=== PATIENT | female | born 1995 | race Caucasian/White ===

== ENCOUNTER 2018-09-11 14:08 | Emergency (ER) | payer OTHER ==
[~2018-09-11] VITALS: Wt 90.0 kg
[~2018-09-11 14:08] MED LIST: FERR-31 PO; FERR-55 PO; PREN-39 PO; PRENAT PO
[2018-09-11 14:11] VITALS: BP 141/80; PULSE 99; RESP 18
[2018-09-11] MEDS ORDERED: ONDANSETRON (ODT) 4 MG TAB ODT STA (14:50)
[2018-09-11] MEDS ORDERED: MECLIZINE 12.5 MG TAB PO ONE (15:00)
[2018-09-11] MEDS ORDERED: IBUPROFEN 600 MG TAB PO ONE (15:00)
[2018-09-11] MEDS ORDERED: CEPHALEXIN 500 MG CAP PO ONE (15:30)
[2018-09-11] MEDS ORDERED: CEPH-443 PO (16:17)
[2018-09-11] MEDS ORDERED: IBUP-1542 PO (16:17)
[2018-09-11] MEDS ORDERED: MECL-77 PO (16:17)
--- NOTE | 2018-09-11 16:24 | ERD ---
ER Documentation Chief Complaint Chief Complaint mckeon,dizziness HPI 22-year-old female presents with multiple complaints. She awoke with a occipital and bitemporal headache. She also has some spinning type dizziness as well. She had nausea and vomiting nonbilious nonbloody. She denies abdominal pain, diarrhea, weakness or deficits. She denies any history of injury or inciting events. She denies urinary complaints. She denies chest pain or shortness of breath. ROS All systems reviewed and are negative except as per history of present illness. Medications Home Meds Active Scripts Ibuprofen* (Motrin*) 600 Mg Tab, 600 MG PO Q6, #15 TAB Prov:RAYMON SHEETS MD 09/11/18 Meclizine Hcl* (Meclizine Hcl*) 25 Mg Tablet, 25 MG PO Q8H PRN for DIZZINESS, #15 TAB Prov:RAYMON SHEETS MD 09/11/18 Cephalexin* (Keflex*) 500 Mg Capsule, 500 MG PO QID for 5 Days, CAP Prov:RAYMON SHEETS MD 09/11/18 Reported Medications Ferrous Sulfate* (Ferrous Sulfate*) 325 Mg Tablet, 325 MG PO BID, TAB /01/14 Multivit/Min/Fol Ac/Iron/Pren* ( S*) 1 Tab Tab, 1 TAB PO DAILY, TAB 04/07/14 Ferrous Sulfate (Iron Supplement) 1 Tab Tablet, 1 TAB PO DAILY 01/15/14 Vits W-Ca,Fe,Fa(<1MG) ( Vitamins) 1 Tab Tablet, 1 TAB PO DAILY 01/15/14 Allergies Allergies: Coded Allergies: No Known Drug Allergy (Verified Allergy, Unknown, 09/11/18) PMhx/Soc Medical and Surgical Hx: pt denies Medical Hx History of Surgery: Yes (APPENDECTOMY) Hx Alcohol Use: No Hx Substance Use: No Hx Tobacco Use: No Smoking Status: Never smoker FmHx Family History: No diabetes, No coronary disease, No other Physical Exam Vitals Vital Signs Date Temp Pulse Resp B/P (MAP) Pulse Ox O2 O2 Flow FiO2 Time Delivery Rate 09/11/18 98.1 99 18 141/80 99 14:11 (100) Physical Exam Const: No acute distress Head: Atraumatic Eyes: Normal Conjunctiva ENT: Normal External Ears, Nose and Mouth. Neck: Full range of motion. No meningismus. Resp: Clear to auscultation bilaterally Cardio: Regular rate and rhythm, no murmurs Abd: Soft, non tender, non distended. Normal bowel sounds Skin: No petechiae or rashes Back: No midline or flank tenderness Ext: No cyanosis, or edema Neur: Awake and alert no marcos reproducible vertigo except for mildly with arising from examination. Normal gait. negative Romberg and no pronator drift. Psych: Normal Mood and Affect Result Diagram: 09/11/18 1526 09/11/18 1526 Results 24 hrs Laboratory Tests Test 09/11/18 15:22 09/11/18 15:24 09/11/18 15:26 Bedside Urine pH (LAB) 5.5 Bedside Urine Protein (LAB) Trace Bedside Urine Glucose (UA) Negative Bedside Urine Ketones (LAB) Negative Bedside Urine Blood Trace-intact Bedside Urine Nitrite (LAB) Negative Bedside Urine Leukocyte Esterase (L 1+ POC Beta HCG, Qualitative NEGATIVE White Blood Count 8.1 10^3/ul Red Blood Count 4.48 10^6/ul Hemoglobin 12.1 g/dl Hematocrit 36.4 % Mean Corpuscular Volume 81.3 fl Mean Corpuscular Hemoglobin 27.0 pg Mean Corpuscular Hemoglobin Concent 33.2 g/dl Red Cell Distribution Width 13.8 % Platelet Count 373 10^3/UL Mean Platelet Volume 9.7 fl Immature Granulocytes % 0.500 % Neutrophils % 68.9 % Lymphocytes % 21.4 % Monocytes % 8.2 % Eosinophils % 0.5 % Basophils % 0.5 % Nucleated Red Blood Cells % 0.0 /100WBC Immature Granulocytes # 0.040 10^3/ul Neutrophils # 5.6 10^3/ul Lymphocytes # 1.7 10^3/ul Monocytes # 0.7 10^3/ul Eosinophils # 0.0 10^3/ul Basophils # 0.0 10^3/ul Nucleated Red Blood Cells # 0.0 10^3/ul Sodium Level 139 mmol/L Potassium Level 4.0 mmol/L Chloride Level 107 mmol/L Carbon Dioxide Level 23 mmol/L Anion Gap 9 Blood Urea Nitrogen 9 mg/dl Creatinine 0.52 mg/dl Est Glomerular Filtrat Rate mL/min > 60 mL/min Glucose Level 103 mg/dl Calcium Level 9.5 mg/dl Total Bilirubin 0.2 mg/dl Direct Bilirubin 0.00 mg/dl Indirect Bilirubin 0.2 mg/dl Aspartate Amino Transf (AST/SGOT) 41 IU/L Alanine Aminotransferase (ALT/SGPT) 47 IU/L Alkaline Phosphatase 71 IU/L Total Protein 7.9 g/dl Albumin 4.4 g/dl Globulin 3.50 g/dl Albumin/Globulin Ratio 1.25 Current Medications Medications Dose Sig/Jeffrey Start Time Status Last (Trade) Ordered Route PRN Stop Time Admin Dose Reason Admin Ondansetron 8 mg ONCE STAT 09/11/18 DC 09/11/18 HCl (Zofran ODT 14:50 09/11/18 15:31 Odt) 14:53 Ibuprofen 600 mg ONCE ONCE 09/11/18 DC 09/11/18 (Motrin) PO 15:00 09/11/18 15:31 15:01 Meclizine 25 mg ONCE ONCE 09/11/18 DC 09/11/18 HCl PO 15:00 09/11/18 15:30 (Antivert) 15:01 Cephalexin 500 mg ONCE ONCE 09/11/18 DC 09/11/18 (Keflex) PO 15:30 09/11/18 15:34 15:31 Procedures/MDM Patient presents with headache and dizziness of uncertain etiology. The dizzi ness is described as a vertigo type dizziness. She has no evidence of central nervous system lesion. CT brain was read as normal. Urine shows 1+ leukocyte esterase. CBC and CMP normal. She was given Zofran, Antivert and ibuprofen. Patient has no signs or symptoms of mass-effect, neurologic deficit, signs of significant bacterial infection. We will treat empirically for findings of UTI although uncertain of cause of symptoms. She may have early viral illness. She will treated with Antivert, Keflex, ibuprofen, primary care follow-up and return precautions. The patient was stable with no new complaints during the ER course. Clinically, there is no current evidence to suggest meningitis, sepsis, acute abdomen, pneumonia, stroke, acute coronary syndrome, pulmonary embolism, aortic dissection or any other emergent condition appearing to require further evaluation or hospitalization. Patient counseled regarding my diagnostic impression and care plan. Prior to discharge all questions answered. Pt agrees with treatment plan and understands strict return precautions. Pt is instructed to follow up with primary care provider within 24-48 hours. Precautionary instructions provided including instructions to return to the ER if not improving or for any worsening or changing symptoms or concerns. Departure Diagnosis: Primary Impression: UTI (urinary tract infection) Urinary tract infection type: acute cystitis Hematuria presence: without hematuria Qualified Codes: N30.00 - Acute cystitis without hematuria Additional Impressions: Dizziness Headache Headache type: unspecified Headache chronicity pattern: unspecified pattern Intractability: not intractable Qualified Codes: R51 - Headache Condition: Stable Patient Instructions: Understanding Urinary Tract Infections (UTIs), Dizziness, Unk Cause Additional Instructions: CT normal. Only abnormality on today's findings show infection in urine. May be vertigo as well. Drink plenty of fluids and rest at home. Recheck for new or worsening symptoms with primary care doctor. RAYMON SHEETS MD Sep 11, 2018 16:24
[2018-09-12] MEDS ORDERED: ACET325T33 PO (11:33)
[2018-09-12] MEDS ORDERED: RANI150T35 PO (11:33)
== END 2018-09-11 17:04 | disposition home or self-care (01) ==
LOC: FTE 14:08
DX: N30.00 Acute cystitis without hematuria (principal); R42 Dizziness and giddiness
CPT/HCPCS: 36415; 70450; 80053; 81003; 81025; 85025; Z7502; Z7610

== ENCOUNTER 2018-09-12 08:58 | Emergency (ER) | payer OTHER ==
[~2018-09-12] VITALS: Ht 160 cm; Wt 103.1 kg
[~2018-09-12 08:58] MED LIST changes: +CEPH-443 PO; +IBUP-1542 PO; +MECL-77 PO
[2018-09-12 09:06] VITALS: Ht 160 cm; Wt 103.1 kg
--- NOTE | 2018-09-12 10:28 | ERD ---
ER Documentation Chief Complaint Chief Complaint re check - abdominal pain HPI 22-year-old female, returns to the emergency department, for follow-up of abdominal pain. The patient is complaining of persistent epigastric abdominal pain, burning, constant, 4/10. She denies nausea or vomiting, no diarrhea or constipation, no fever or chills. The patient has a significant past medical history of appendectomy. ROS All systems reviewed and are negative except as per history of present illness. Medications Home Meds Active Scripts Acetaminophen* (Tylenol*) 325 Mg Tablet, 2 TAB PO Q8 PRN for PAIN AND OR ELEVATED TEMP, #20 TAB Prov:LIEN HUBBARD MD 09/12/18 Ranitidine Hcl* (Zantac*) 150 Mg Tablet, 150 MG PO BID PRN for EPIGASTRIC PAIN, #30 TAB Prov:LIEN HUBBARD MD 09/12/18 Ibuprofen* (Motrin*) 600 Mg Tab, 600 MG PO Q6, #15 TAB Prov:RAYMON SHEETS MD 09/11/18 Meclizine Hcl* (Meclizine Hcl*) 25 Mg Tablet, 25 MG PO Q8H PRN for DIZZINESS, #15 TAB Prov:RAYMON SHEETS MD 09/11/18 Cephalexin* (Keflex*) 500 Mg Capsule, 500 MG PO QID for 5 Days, CAP Prov:RAYMON SHEETS MD 09/11/18 Reported Medications Ferrous Sulfate* (Ferrous Sulfate*) 325 Mg Tablet, 325 MG PO BID, TAB 04/07/14 Multivit/Min/Fol Ac/Iron/Pren* ( S*) 1 Tab Tab, 1 TAB PO DAILY, TAB 04/07/14 Ferrous Sulfate (Iron Supplement) 1 Tab Tablet, 1 TAB PO DAILY 01/15/14 Vits W-Ca,Fe,Fa(<1MG) ( Vitamins) 1 Tab Tablet, 1 TAB PO DAILY 01/15/14 Allergies Allergies: Coded Allergies: No Known Drug Allergy (Verified Allergy, Unknown, 09/12/18) PMhx/Soc History of Surgery: Yes (APPENDECTOMY) Anesthesia Reaction: No Hx Neurological Disorder: Yes (Vertigo) Hx Respiratory Disorders: No Hx Cardiac Disorders: No Hx Psychiatric Problems: No Hx Miscellaneous Medical Probl: No Hx Alcohol Use: No Hx Substance Use: No Hx Tobacco Use: No Physical Exam Vitals Vital Signs Date Temp Pulse Resp B/P (MAP) Pulse Ox O2 O2 Flow FiO2 Time Delivery Rate 09/12/18 98.0 76 15 110/76 99 Room Air 11:52 (87) 09/12/18 97.0 86 19 127/80 97 09:06 (96) Physical Exam Const: No acute distress Head: Atraumatic Eyes: Normal Conjunctiva ENT: Normal External Ears, Nose and Mouth. Neck: Full range of motion. No meningismus. Resp: Clear to auscultation bilaterally Cardio: Regular rate and rhythm, no murmurs Abd: Soft, non tender, non distended. Normal bowel sounds Skin: No petechiae or rashes Back: No midline or flank tenderness Ext: No cyanosis, or edema Neur: Awake and alert Psych: Normal Mood and Affect Results 24 hrs Laboratory Tests Test 09/12/18 10:41 Urine Color STRAW Urine Clarity CLEAR Urine pH 6.0 Urine Specific Grant 1.004 Urine Ketones NEGATIVE mg/dL Urine Nitrite NEGATIVE mg/dL Urine Bilirubin NEGATIVE mg/dL Urine Urobilinogen NEGATIVE mg/dL Urine Leukocyte Esterase NEGATIVE Aldo/ul Urine Hemoglobin NEGATIVE mg/dL Urine Glucose NEGATIVE mg/dL Urine Total Protein NEGATIVE mg/dl Current Medications Medications Dose Sig/Jeffrey Start Time Status Last (Trade) Ordered Route PRN Stop Time Admin Dose Reason Admin Famotidine 20 mg ONCE ONCE 09/12/18 DC 09/12/18 (Pepcid) PO 10:30 10:40 09/12/18 10:32 DIAGNOSTIC IMAGING REPORT Patient: ARI MARTINEZ : 1995 Age: 22 Sex: F MR #: [id number] DOS: 09/12/18 1029 Ordering MD: LIEN HUBBARD MD Location: [facility] Room/Bed: PROCEDURE: US Abdomen. CLINICAL INDICATION: abdominal pain TECHNIQUE: Multiple real-time images were acquired of the patient's right upper quadrant abdomen and retroperitoneum utilizing a high resolution transducer. COMPARISON: None FINDINGS: The liver demonstrates normal echogenicity. The liver is normal in size and no focal solid lesions are seen. The liver measures 14.6 cm in length. The portal vein is patent with normal direction of flow. No intrahepatic biliary dilatation is seen. No gallstones are identified within the gallbladder. There is no pericholecystic fluid or gallbladder wall thickening. The common bile duct measures 3 mm in maximal dimension. The pancreas is not well seen due to overlying bowel gas. No free fluid is identified. The right kidney is normal in size, and demonstrate normal echogenicity and cortical thickness. The right kidney measures 10.5 cm in long dimension. There is no evidence of hydronephrosis. There are no kidney stones. RPTAT: AA IMPRESSION: Unremarkable right upper quadrant abdominal ultrasound. .Mike Holly MD, MD Date Time Electronically viewed and signed by .Mike Holly MD, MD on 09/12/2018 11:11 .S/ CC: LIEN HUBBARD MD [id number] Procedures/MDM Vital signs stable. Differential diagnosis include but not limited to: Gastritis, gastroenteritis, cholelithiasis, cholecystitis, kidney stones, irritable bowel syndrome, inflammatory bowel syndrome, malabsorption syndrome, food intolerance, medication side effect, pancreatitis, diverticulitis, bowel obstruction. Physical examination and clinical presentation consistent most likely with acute gastritis, low suspicion for acute abdomen. During the ED course the patient remained stable, no new complaints. Results and clinical impression discussed with the patient who agrees with management. The patient is stable to be treated outpatient and will be discharged home. some side effects of prescribed medications (headache, rash, nausea, vomiting, diarrhea, drowsiness, habituation, bleeding, hypertension, i nteractions with other medications) were reviewed. Follow up with the primary care provider in the next 48h is recommended. If symptoms persist, worsen or new symptoms develop, then patient should return to the ED immediately. Instructions explained and given directly by me to the patient with acknowledgment and demonstrated understanding. Disclaimer: Inadvertent spelling and grammatical errors are likely due to EHR/dictation software use and do not reflect on the overall quality of patient care. Also, please note that the electronic time recorded on this note does not necessarily reflect the actual time of the patient encounter. Departure Diagnosis: Primary Impression: Epigastric abdominal pain Additional Impression: Gastritis Condition: Stable Additional Instructions: Thank you very much for allowing us to participate in your care. Your health and safety is our top priority at [facility]. Call your primary care doctor TOMORROW for an appointment during the next 2-4 days and bring all the information and medications prescribed. Have prescriptions filled and follow precisely the directions on the label. If the symptoms get worse and your provider is unavailable, return to the Emergency Department immediately. LIEN HUBBARD MD Sep 12, 2018 10:28
[2018-09-12] MEDS ORDERED: FAMOTIDINE 20 MG TAB PO ONE (10:30)
[2018-09-12] MEDS ORDERED: RANI150T35 PO (11:33)
[2018-09-12] MEDS ORDERED: ACET325T33 PO (11:33)
[2018-09-12 11:52] VITALS: BP 110/76; PULSE 76; RESP 15
== END 2018-09-12 11:53 | disposition home or self-care (01) ==
LOC: FTE 08:58
DX: K29.70 Gastritis, unspecified, without bleeding (principal)
CPT/HCPCS: 76705; 81003; Z7502; Z7610

== ENCOUNTER 2018-10-21 10:37 | Emergency (ER) | payer OTHER ==
[~2018-10-21] VITALS: Ht 172.7 cm; Wt 100.5 kg
[~2018-10-21 10:37] MED LIST changes: +ACET325T33 PO; +RANI150T35 PO
[2018-10-21 10:45] VITALS: BP 132/75; PULSE 87; RESP 20; Ht 172.7 cm; Wt 100.5 kg
--- NOTE | 2018-10-21 12:49 | ERD ---
ER Documentation Chief Complaint Chief Complaint Complains of vag bleed and HPI 23-year-old female, A2 with a EGA 8 weeks by ultrasound done 10/02/18. Presents to the emergency department complaining of vaginal bleeding. The patient reports an IUD in place. She denies fevers, no chills, no passing monica ts. She has established care with Dr. Joe Clark. ROS All systems reviewed and are negative except as per history of present illness. Medications Home Meds Active Scripts Acetaminophen* (Tylenol*) 325 Mg Tablet, 2 TAB PO Q8 PRN for PAIN AND OR ELEVATED TEMP, #20 TAB Prov:LIEN HUBBARD MD 09/12/18 Ranitidine Hcl* (Zantac*) 150 Mg Tablet, 150 MG PO BID PRN for EPIGASTRIC PAIN, #30 TAB Prov:LIEN HUBBARD MD 09/12/18 Ibuprofen* (Motrin*) 600 Mg Tab, 600 MG PO Q6, #15 TAB Prov:RAYMON SHEETS MD 09/11/18 Meclizine Hcl* (Meclizine Hcl*) 25 Mg Tablet, 25 MG PO Q8H PRN for DIZZINESS, #15 TAB Prov:RAYMON SHEETS MD 09/11/18 Cephalexin* (Keflex*) 500 Mg Capsule, 500 MG PO QID for 5 Days, CAP Prov:RAYMON SHEETS MD 09/11/18 Reported Medications Ferrous Sulfate* (Ferrous Sulfate*) 325 Mg Tablet, 325 MG PO BID, TAB 04/07/14 Multivit/Min/Fol Ac/Iron/Pren* ( S*) 1 Tab Tab, 1 TAB PO DAILY, TAB 04/07/14 Ferrous Sulfate (Iron Supplement) 1 Tab Tablet, 1 TAB PO DAILY 01/15/14 Vits W-Ca,Fe,Fa(<1MG) ( Vitamins) 1 Tab Tablet, 1 TAB PO DAILY 01/15/14 Allergies Allergies: Coded Allergies: No Known Drug Allergy (Verified Allergy, Unknown, 10/03/18) PMhx/Soc History of Surgery: Yes (APPENDECTOMY) Anesthesia Reaction: No Hx Neurological Disorder: Yes (Vertigo) Hx Respiratory Disorders: Yes (asthma) Hx Cardiac Disorders: No Hx Psychiatric Problems: No Hx Miscellaneous Medical Probl: No Hx Alcohol Use: No Hx Substance Use: No Hx Tobacco Use: No FmHx Family History: No diabetes, No coronary disease Physical Exam Vitals Vital Signs Date Temp Pulse Resp B/P (MAP) Pulse Ox O2 O2 Flow FiO2 Time Delivery Rate 10/21/18 99.1 87 20 132/75 99 10:45 (94) Physical Exam Const: No acute distress Head: Atraumatic Eyes: Normal Conjunctiva ENT: Normal External Ears, Nose and Mouth. Neck: Full range of motion. No meningismus. Resp: Clear to auscultation bilaterally Cardio: Regular rate and rhythm, no murmurs Abd: Soft, non tender, non distended. Normal bowel sounds Skin: No petechiae or rashes Back: No midline or flank tenderness Ext: No cyanosis, or edema Neur: Awake and alert Psych: Normal Mood and Affect Results 24 hrs Laboratory Tests Test 10/21/18 13:17 Bedside Urine pH (LAB) 8.0 Bedside Urine Protein (LAB) Trace Bedside Urine Glucose (UA) Negative Bedside Urine Ketones (LAB) Trace Bedside Urine Blood Trace-intact Bedside Urine Nitrite (LAB) Negative Bedside Urine Leukocyte Esterase (L Negative Current Medications Medications Dose Sig/Jeffrey Start Time Status Last (Trade) Ordered Route PRN Stop Time Admin Dose Reason Admin 650 mg ONCE STAT 10/21/18 DC 10/21/18 Acetaminophen PO 12:59 13:11 (Tylenol 10/21/18 13:05 Tab) Patient: ARI MARTINEZ : 1995 Age: 23 Sex: F MR #: [id number] DOS: 10/21/18 1259 Ordering MD: LIEN HUBBARD MD Location: [facility] Room/Bed: PROCEDURE: US OB. CLINICAL INDICATION: Vaginal bleeding. TECHNIQUE: Multiple sonographic images of the pelvis were obtained. Transabdominal and transvaginal views of the pelvis are available for review. The images were reviewed on a PACS workstation. COMPARISON: US PELVIS 10/03/2018; US PELVIS 12/05/2012 FINDINGS: The uterus measures 12.9 x 4.8 x 6.1 cm. There is a 3.3 cm myometrial mass at the anterior wall suggestive of a fibroid. There is an echogenic linear structure seen in the endocervical canal suggestive of an intrauterine prophylactic device. Intrauterine is identified. The crown-rump length equals 1.87 cm which corresponds to 8 weeks 3 days gestational age by ultrasound criteria. Gestational sac size is 3.5 cm corresponding to 8 weeks 5 days. cardiac activity is 172 beats per minute. No subchorionic hemorrhage is identified. The adnexa are unremarkable. There is no free fluid. The right ovary was not well visualized. Left ovary measures 4.5 cc in volume. IMPRESSION: 1. Single live intrauterine gestation of approximately 8 weeks 3 days by crown-rump length. 2. Intrauterine prophylactic device in the endocervical canal. 3. Anterior uterine fibroid measuring 3.3 cm. 4. No adnexal masses or free fluid identified. Call report: A call report of the findings was made to Dr. Hubbard on 10/21/2018 2:25:08 PM.. RPTAT: GG .Srinivasa Lauren MD, MD Date Time Electronically viewed and signed by .Srinivasa Lauren MD, on 10/21/2018 14:33 .L/ CC: LIEN HUBBARD MD [phone] Procedures/MDM Vital signs stable, Physical exam unremarkable. Differential diagnosis include but not limited to: UTI, threatening , incomplete versus complete , ectopic , physiologic implantation bleeding, molar . Physical examination and clinical presentation most likely consistent with threatening . During the ED course the patient remained hemodynamically stable and asymptomatic. Results and clinical impression discussed with patient who agrees with manage ment. The patient is stable to be treated outpatient and will be discharged home with close monitoring and follow-up in 2 days with her primary physician. Bed rest and pelvic rest recommended until further medical evaluation. The patient was instructed regarding the outcomes and the potential complications like severe bleeding and . If the patient presents severe bleeding or pain, she was instructed to return to the hospital immediately. Disclaimer: Inadvertent spelling and grammatical errors are likely due to EHR/dictation software use and do not reflect on the overall quality of patient care. Also, please note that the electronic time recorded on this note does not necessarily reflect the actual time of the patient encounter. Departure Diagnosis: Primary Impression: Vaginal bleeding in patient at less than 20 weeks gestation Additional Impression: IUD (intrauterine device) in place Condition: Stable Additional Instructions: Thank you very much for allowing us to participate in your care. Your health and safety is our top priority at [facility]. Call your primary care doctor TOMORROW for an appointment during the next 2-4 days and bring all the information and medications prescribed. Have prescriptions filled and follow precisely the directions on the label. If the symptoms get worse and your provider is unavailable, return to the [facility] immediately. LIEN HUBBARD MD Oct 21, 2018 12:49
[2018-10-21] MEDS ORDERED: ACETAMINOPHEN 325 MG TAB PO STA (12:59)
== END 2018-10-21 15:34 | disposition home or self-care (01) ==
LOC: FTE 10:37
DX: O20.9 Hemorrhage in early pregnancy, unspecified (principal); O99.511 Diseases of the respiratory system complicating pregnancy, first trimester; J45.909 Unspecified asthma, uncomplicated; Z3A.08 8 weeks gestation of pregnancy
CPT/HCPCS: 76801; 81003; Z7610

== ENCOUNTER 2018-12-11 23:20 | Emergency (ER) | payer OTHER ==
[~2018-12-11] VITALS: Ht 162.6 cm; Wt 96.2 kg
[2018-12-11 23:24] VITALS: Ht 162.6 cm; Wt 96.2 kg
[2018-12-12] MEDS ORDERED: SOD CHLORIDE 0.9% 1,000 ML IV STA (02:47)
[2018-12-12] MEDS ORDERED: ACETAMINOPHEN 325 MG TAB PO ONE (03:00)
[2018-12-12] MEDS ORDERED: METOCLOPRAMIDE 10 MG INJ IV ONE (03:00)
[2018-12-12 06:14] VITALS: BP 120/80; PULSE 83; RESP 18
--- NOTE | 2018-12-13 01:09 | ERD ---
ER Documentation Chief Complaint Chief Complaint vag bleed 15 weeks ; cramping HPI This is a 23 year old A1 F at approximately 15 weeks gestation who presents to the ED with complaints of progressively worsening vaginal bleeding and lower abdominal cramping since yesterday. Pt believes she may have passed tissue today, prompting her to present here. She states today's sx are similar to her previous miscarriage sx. She was recently treated for hyperemesis gravidarum about 1 month ago. Was given Zofran PO and doing well but started to feel nauseous again yesterday. Has been having multiple episodes of nonbilous, non bloody emesis x1 day. No low back pain, no fevers, chills, no urinary sx. No other complaints. ROS All systems reviewed and are negative except as per history of present illness. Medications Home Meds Active Scripts Acetaminophen* (Tylenol*) 325 Mg Tablet, 2 TAB PO Q8 PRN for PAIN AND OR ELEVATED TEMP, #20 TAB Prov:LIEN HUBBARD MD 09/12/18 Ranitidine Hcl* (Zantac*) 150 Mg Tablet, 150 MG PO BID PRN for EPIGASTRIC PAIN, #30 TAB Prov:LIEN HUBBARD MD 09/12/18 Ibuprofen* (Motrin*) 600 Mg Tab, 600 MG PO Q6, #15 TAB Prov:RAYMON SHEETS MD 09/11/18 Meclizine Hcl* (Meclizine Hcl*) 25 Mg Tablet, 25 MG PO Q8H PRN for DIZZINESS, #15 TAB Prov:RAYMON SHEETS MD 09/11/18 Cephalexin* (Keflex*) 500 Mg Capsule, 500 MG PO QID for 5 Days, CAP Prov:RAYMON SHEETS MD 09/11/18 Reported Medications Ferrous Sulfate* (Ferrous Sulfate*) 325 Mg Tablet, 325 MG PO BID, TAB 04/07/14 Multivit/Min/Fol Ac/Iron/Pren* ( S*) 1 Tab Tab, 1 TAB PO DAILY, TAB 04/07/14 Ferrous Sulfate (Iron Supplement) 1 Tab Tablet, 1 TAB PO DAILY 01/15/14 Vits W-Ca,Fe,Fa(<1MG) ( Vitamins) 1 Tab Tablet, 1 TAB PO DAILY 01/15/14 Allergies Allergies: Coded Allergies: No Known Drug Allergy (Verified Allergy, Unknown, 10/03/18) PMhx/Soc History of Surgery: Yes (APPENDECTOMY, CSECTION X 2, RIGHT SHOULDER SX) Anesthesia Reaction: No Hx Neurological Disorder: Yes (Vertigo) Hx Respiratory Disorders: Yes (asthma) Hx Cardiac Disorders: No Hx Psychiatric Problems: No Hx Miscellaneous Medical Probl: No Hx Alcohol Use: No Hx Substance Use: No Hx Tobacco Use: No Smoking Status: Never smoker Physical Exam Vitals Vital Signs Date Temp Pulse Resp B/P (MAP) Pulse Ox O2 O2 Flow FiO2 Time Delivery Rate 12/12/18 98.1 83 18 120/80 100 Room Air 06:14 (93) 12/11/18 98.2 99 20 126/74 97 23:24 (91) Physical Exam Const: No acute distress Head: Atraumatic Eyes: Normal Conjunctiva ENT: Normal External Ears, Nose and Mouth. Neck: Full range of motion. No meningismus. Resp: Clear to auscultation bilaterally Cardio: Regular rate and rhythm, no murmurs Abd: Soft, non tender, non distended. No rebound or guarding. Normal bowel sounds Skin: No petechiae or rashes Back: No midline or flank tenderness Ext: No cyanosis, or edema Neur: Awake and alert Psych: Normal Mood and Affect Result Diagram: 12/12/18 0303 12/12/18 0303 Results 24 hrs Laboratory Tests Test 12/12/18 03:03 White Blood Count 10.4 10^3/ul Red Blood Count 4.46 10^6/ul Hemoglobin 12.3 g/dl Hematocrit 36.6 % Mean Corpuscular Volume 82.1 fl Mean Corpuscular Hemoglobin 27.6 pg Mean Corpuscular Hemoglobin Concent 33.6 g/dl Red Cell Distribution Width 13.4 % Platelet Count 350 10^3/UL Mean Platelet Volume 9.7 fl Immature Granulocytes % 0.500 % Neutrophils % 64.7 % Lymphocytes % 24.7 % Monocytes % 7.1 % Eosinophils % 2.5 % Basophils % 0.5 % Nucleated Red Blood Cells % 0.0 /100WBC Immature Granulocytes # 0.050 10^3/ul Neutrophils # 6.7 10^3/ul Lymphocytes # 2.6 10^3/ul Monocytes # 0.7 10^3/ul Eosinophils # 0.3 10^3/ul Basophils # 0.1 10^3/ul Nucleated Red Blood Cells # 0.0 10^3/ul Urine Color YELLOW Urine Clarity SLIGHTLY CLOUDY Urine pH 5.0 Urine Specific [place] 1.018 Urine Ketones NEGATIVE mg/dL Urine Nitrite NEGATIVE mg/dL Urine Bilirubin NEGATIVE mg/dL Urine Urobilinogen NEGATIVE mg/dL Urine Leukocyte Esterase NEGATIVE [place]/ul Urine Microscopic RBC 12 /HPF Urine Microscopic WBC 2 /HPF Urine Squamous Epithelial Cells FEW /HPF Urine Bacteria FEW /HPF Urine Mucus FEW /HPF Urine Hemoglobin NEGATIVE mg/dL Urine Glucose NEGATIVE mg/dL Urine Total Protein NEGATIVE mg/dl Sodium Level 140 mmol/L Potassium Level 3.7 mmol/L Chloride Level 106 mmol/L Carbon Dioxide Level 25 mmol/L Anion Gap 9 Blood Urea Nitrogen 3 mg/dl Creatinine 0.44 mg/dl Est Glomerular Filtrat Rate mL/min > 60 mL/min Glucose Level 91 mg/dl Calcium Level 9.9 mg/dl Total Bilirubin 0.4 mg/dl Direct Bilirubin 0.00 mg/dl Indirect Bilirubin 0.4 mg/dl Aspartate Amino Transf (AST/SGOT) 17 IU/L Alanine Aminotransferase (ALT/SGPT) 9 IU/L Alkaline Phosphatase 71 IU/L Total Protein 8.0 g/dl Albumin 4.2 g/dl Globulin 3.80 g/dl Albumin/Globulin Ratio 1.10 Beta HCG, Quantitative 5381.1 mIU/ml Current Medications Medications Dose Sig/Jeffrey Start Time Status Last (Trade) Ordered Route PRN Stop Time Admin Dose Reason Admin Sodium 1,000 ml @ Q1H STAT 12/12/18 DC 12/12/18 Chloride 1,000 mls/hr IV 02:47 03:29 12/12/18 03:46 10 mg ONCE ONCE 12/12/18 DC 12/12/18 Metoclopramid IV 03:00 03:30 e HCl 12/12/18 03:01 (Reglan) 650 mg ONCE ONCE 12/12/18 DC 12/12/18 Acetaminophen PO 03:00 03:28 (Tylenol 12/12/18 03:01 Tab) Procedures/MDM EMERGENT LABS AND DIAGNOSTIC STUDIES: Lab Results above were reviewed and interpreted by me as below. CBC: no e/o of systemic infection or severe anemia CMP: no e/o severe acidosis, alkalosis, renal failure, diabetic ketoacidosis, liver disease Urine: no significant hematuria or pyuria Ucx: pending beta hc Blod Type: A+ Otherwise within normal limits, unremarkable or as documented above. Radiology Results as interpreted by Radiology: PROCEDURE: US OB. CLINICAL INDICATION: patient with vaginal bleeding. TECHNIQUE: Transabdominal and transvaginal views of the pelvis are available for review. COMPARISON: US PELVIS 10/21/2018 FINDINGS: There is a single intrauterine gestation present, with cephalic presentation. No cardiac activity is demonstrated on the color Doppler flow or M-mode imaging. measurements were obtained as follows: BPD: 2.00 cm (13 weeks 1 day) HC: 8.02 cm (13 weeks 3 days) AC : 6.56 cm (13 weeks 2 days) FL: 0.90 cm (12 weeks 5 days). Average ultrasound age 13 weeks 1 day with estimated delivery date of 06/18/2019, that is delayed compared to the estimated gestational age of 15 weeks 5 days (with MAKENZIE 05/31/2019) based on LMP, as well as estimated delivery date of 05/29/2019 based on prior ultrasound. Estimated weight 67.8 g Placenta is anterior without evidence of abruption. IMPRESSION: Single intrauterine gestation with absence of cardiac activity, which was present on prior ultrasound, suggestive of demise. There is also noted to be delayed estimated gestational age based on LMP and previous ultrasound dating. Clinical correlation is advised. These results were called to the covering ER nurse Rosalie at time of dictation 0518 hours and she will be passing along results to the covering clinician. Nursing Notes Reviewed. Previous Medical Records requested via the Electronic Health Record. EMERGENCY DEPARTMENT COURSE / MEDICAL DECISION MAKIN yo A1 F presents with vaginal bleeding and pelvic pain. Workup as above negative for any acute infection or dehydration. She is afebrile here and vital signs are nl. Abdominal exam is benign. US without any evidence of cardiac activity. Beta hcg levels 5381, lower than expected per her gestational age. History and results consistent with missed . I have low suspicious for sepsis, septic shock or ectopic . This was discussed with pt at bedside. She was given copies of her results and told to follow up with her OBGYN in 2 days for repeat beta hcg levels and possible D&C. Strict return precautions discussed. She felt significantly better status post IVFs and Reglan. She is hemodynamically stable and tolerating PO prior to discharge. Strict return precautions given. SPECIALIST FOLLOW UP RECOMMENDED: CARDIOLOGY MANAGER Departure Diagnosis: Primary Impression: Vaginal bleeding Additional Impression: demise due to miscarriage Condition: Stable Patient Instructions: Miscarriage Referrals: CARDIOLOGY MANAGER [place] [address] [facility] [address] [place] [address] NIL[address] [place] [address] [facility] [address] [place] [address] [address] [place] [id number] [facility] [address] [address] [facility] [address] [place] [address] [facility] [address] [place] [address] [facility] [id number] [address] [facility] [address] [address], [place] [address] [facility]. [address], [facility] [address] [address], [facility] [address] [place] [address] Additional Instructions: You must be seen by the CARDIOLOGY MANAGER in 2 days for recheck of your blood levels. Take copies of your labs and ultrasound from today. Return here for any new or worsening symptoms. JAMAL MYRICK PA-C Dec 13, 2018 01:02
== END 2018-12-12 06:15 | disposition home or self-care (01) ==
LOC: FTE 23:20
DX: O03.9 Complete or unspecified spontaneous abortion without complication (principal); R10.2 Pelvic and perineal pain
CPT/HCPCS: 36415; 76801; 80053; 81001; 84702; 85025; 86900; 86901; 87086; 96374; J2765; J7030; Z7502; Z7610; 81003